=== PATIENT | male | born 1940 | race Caucasian/White ===

== ENCOUNTER 2017-01-27 11:45 | Day surgery (SDC) | payer MEDICARE ==
[~2017-01-27] VITALS: Ht 177.8 cm; Wt 135.0 kg
[~2017-01-27 11:45] MED LIST: AMLO10TA3 PO; ASCO100089 PO; CALC-190 PO; CARV25TA2 PO; CHLS378PW PO; CHOL100043 PO; Dexamethasone 4 mg/mL Inj IVPUSH PRN; EPHEDrine Sulfate 50 mg/mL Inj IVPUSH PRN; EZET10TA PO; FENO160T PO; FINA5TAB9 PO; FURO40SO4 PO; HYDR-3938 PO; HYDROmorphone 1 mg/mL Inj IVPUSH PRN; INSU100V7 SUBQ; ISOS60TA2 PO; LOSA100T3 PO; LOVASA PO; Labetalol 5 mg/mL 4 mL Inj IV PRN; Lactated Ringer's 500 ML IV PRN; MAGN400T4 PO; MULT-666 PO; MetoCLOpramide 5 mg/mL 2 mL Inj IVPUSH PRN; NIAC500C3 PO; OMEG1CAP2 PO; OXYB5TAB10 PO; Ondansetron 2 mg/mL 2 mL Inj IVPUSH PRN; POLY17PO6 PO; POTA20TA16 PO; Phenylephrine 10,000 mCg/mL Inj IVPUSH PRN; TERA10CA5 PO; fentaNYL-PF 50 mCg/mL 2 mL Inj IVPUSH PRN; hydrALAZINE 20 mg/mL Inj IVPUSH PRN; saw palmetto PO
[2017-01-27] MEDS ORDERED: Propofol 10,000 mCg/mL 20 mL Inj ONE (11:46)
[2017-01-27] MEDS ORDERED: Ketamine 10 mg/mL 20 mL Inj ONE (11:46)
[2017-01-27] MEDS ORDERED: FRSM80T PO (12:30)
[2017-01-27 12:36] VITALS: BP 150/68; PULSE 53; RESP 16; O2SAT 96
--- NOTE | 2017-01-27 13:13 | PCM.HPANE ---
Patient Data Date of Service: January 27, 2017 Surgeon Admitting Provider: Attending Provider:Barry Wagner MD Primary Care Physician:Smith Davalos MD Other Provider:Arelis Sharma Anesthesia Reason for Visit Colon Cancer Ht/WT & BMI Height (Feet): 5 Height (Inches): 10 Weight (Kilograms): 135 Body Mass Index 42.00 Allergies Coded Allergies: Sulfa (Sulfonamide Antibiotics) (Verified Allergy, Severe, nose bleeds, ) TAPE (Verified Allergy, Severe, Blisters, 01/15/16) Paper OK rosiglitazone maleate (Verified Allergy, Severe, Myalgias, 01/15/16) Heblgwk-Zwp-Kzv Reductase Inhibitor (Verified Allergy, Mild, stiffness, ) amitriptyline (Verified Allergy, Mild, lethary, 01/15/16) atorvastatin (Verified Allergy, Mild, distress, 01/15/16) diltiazem (Verified Allergy, Mild, leg swelling, 01/15/16) lisinopril (Verified Allergy, Mild, cough, 01/15/16) naproxen (Verified Allergy, Mild, stiffness in back, 01/15/16) niacin (Verified Allergy, Mild, low back pain, 01/15/16) spironolactone (Verified Allergy, Mild, stiff throat muscles, 01/15/16) Uncoded Allergies: AllKare Adhesive (Allergy, Severe, Rash, 02/07/10) Paper Tape OK Statins (Allergy, Severe, myalgia, 02/07/10) "felt like my body was shutting down" w/ Zocor & Lipitor Past Anesthesia History Anesthesia History: Denies:: Abnormal Airway, Anesthesia Reactions, Difficult Intubation, Fam Anesthesia Reaction, Fam Malignant Hypertherm, Malignant Hyperthermia Diabetes History Hx Diabetes?: Yes Current Bedside Blood Glucose: 78 MRSA MRSA: No Medications Blood Thinner: Aspirin Home Meds Incl Beta Jonathan: Yes Date Beta Jonathan Taken: January 27, 2017 Time Beta Jonathan Taken: 0700 Reported Medications Furosemide 80 Mg Tab80 Mg PO DAILY 30 Days Ref 0 01/27/17 Cholecalciferol (Vitamin D3) (Vitamin D)1,000 Unit Tablet4,000 Unit PO DAILY #1 BOTTLE Ref 0 01/26/17 Ascorbic Acid (Vitamin C)1,000 Mg Tab.chew1,000 Mg PO DAILY Ref 0 01/26/17 Hydralazine 10 Mg Mwqfxs73 Mg PO TID Ref 0 01/26/17 Ezetimibe (Zetia)10 Mg Phgfmf50 Mg PO DAILY 30 Days Ref 0 01/15/16 Potassium Chloride 20 Meq Tab.er.prt20 Meq PO BID 30 Days Ref 0 TAKE WITH FOOD 01/15/16 Oxybutynin Chloride 5 Mg Tablet5 Mg PO HS Ref 0 01/15/16 Niacin 500 Mg Capsule.er500 Mg PO 01/15/16 Multivitamin (Once Daily)1 Each Tablet1 Each PO 01/15/16 Polyethylene Glycol 3350 (Miralax)17 Gm Powd.pack17 Gm PO 01/15/16 Magnesium Oxide 400 Mg Dbhhdy866 Mg PO 01/15/16 Logan-3 Acid Ethyl Esters (Lovaza)1 Gm Capsule1 Gm PO DAILY #30 CAPSULE Ref 0 01/15/16 Insulin Glargine (Lantus U100 Insulin Vial)100 Unit/Ml Jefo969 Unit SUBQ HS #1 VIAL Ref 0 01/15/16 Finasteride 5 Mg Tablet5 Mg PO DAILY 30 Days Ref 0 01/15/16 Losartan Potassium (Cozaar)100 Mg Sanklb200 Mg PO 01/15/16 Carvedilol 25 Mg Cisbad21 Mg PO BID Ref 0 01/15/16 Calcium Carb&Cit/Mag12/Vit D3 (Calcium 500 mg Tablet)1 Each Tablet1 Each PO 01/15/16 Amlodipine 10 Mg Lyielx78 Mg PO DAILY Ref 0 01/15/16 Terazosin 10 Mg Iamtnub76 Mg PO HS Ref 0 10/01/15 Isosorbide MN ER 60 Mg Tab.er.24h60 Mg PO DAILY 01/04/14 Cholestyramine (Questran Powder)378 Gm Powd40 Gm PO DAILY #1 CAN Ref 0 01/04/14 [Lovasa] No Conflict Check1 Gm PO DAILY 12/06/13 [saw palmetto] No Conflict Dfhdg454 Mg PO DAILY 09/30/10 Discontinued Reported Medications Fenofibrate (Tricor)145 Mg Jql882 Mg PO DAILY 30 Days Ref 0 01/26/17 Fenofibrate (Tricor)145 Mg Zwf930 Mg PO DAILY 30 Days Ref 0 01/15/16 Furosemide 40 Mg/4 Ml Yehfmjgr15 Mg PO DAILY 30 Days Ref 0 01/15/16 Simethicone (Gas-X)62.5 Mg Strip62.5 Mg PO prn 01/04/14 History History of ENT Problems?: No HEENT History: Positive for:: Cataracts (early stages) Denies:: Abnormal Airway Difficult Intubation Dysphagia Hearing Problem Denture Type: None Teeth Condition: Broken Teeth Hx of Heart Problems?: Yes Cardiovascular History: Positive for:: Atrial Fibrillation Congestive Heart Failure Edema Hypertension Irregular Heartbeat (atrial fibrillation) Denies:: AICD Chest Pain Pacemaker Valvular Heart Disease Hx of Respiratory Problem?: No Respiratory History: Positive for:: Dyspnea (WITH EXERTION) Pneumonia (when he was a child) Denies:: Asthma COPD Cough Hemoptysis Tuberculosis Hx Neurologic Problems?: Yes Neurological History: Positive for:: Dizziness Denies:: CVA Hx of GI Problems?: Yes Hx of Problems?: Yes Genitourinary History: Positive for:: Urinary Tract Infection (2009) Male Hx: Denies:: Scrotal Mass Testicular Surgery Hx Musculoskeletal Problems?: No Musculoskeletal History: Denies:: Joint Replacement Hx of Psycho/Social Problems?: No Psycho Social History: Denies:: Anxiety Hx Depression Hx Surgeries?: Yes (sigmoidectomy, T&A, ) Hx Any Other Health Problems?: No Other History: Positive for:: Cancer (BOWEL RESECT. WITH COLOSTOMY) Hospitalization (x3 in 2009 r/t colon ca) History Blood Transfusions: Positive for:: Blood Transfusions Denies:: Blood Transfuse Reaction Hx Diabetes: YesBedside Blood Glucose: 78 Hx Alcohol Use: NoHx Substance Use: No Smoking Status: Never Smoker Stop/Bang Treated for Sleep Apnea?: Yes Do You Have a CPAP Machine?: Yes DARREN Risk Assessment: High Risk, =/>3 Yes DARREN Category 1: Yes Risk Assessment Category Category 1A: Patient has history of documented sleep apnea, and HAS NOT received any narcotic, sedative or anesthesia administration during this stay. Category 1B: Patient has history of documented sleep apnea, and HAS received any narcotic , sedative or anesthesia administration during this stay Category 2: Patient has SUSPECTED Obstructive Sleep Apnea, and HAS received any narcotic , sedative or anesthesia administration during this stay. Category 3: Patient has SUSPECTED Obstructive Sleep Apnea and HAS NOT received narcotic, sedative or anesthesia administration during this stay. Category 4: Outpatient in Procedural Areas with known sleep apnea or who screen positive for High Risk via the STOP/BANG questionnaire. Exam Exam Vital Signs Vital Signs Date Time Temp Pulse Resp B/P Pulse Ox O2 Delivery O2 Flow Rate FiO2 01/27/17 12:36 37.1 53 16 150/68 96 Room Air General Appearance: Alert, Oriented X3, Cooperative, No Acute Distress HEENT/AIRWAY: MP 2 Lungs: Clear to Auscultation, Normal Air Movement Heart: Exam Unremarkable, Regular Rate/Rhythm, No Murmurs/Rubs/Gallops Meds/Labs/Diagnostics Bedside Blood Glucose: 78 Plan Impression Patient chart reviewed, patient interviewed and anesthestic plan with risks, benefits, and alternatives discussed, and informed consent obtained. ASA Physical Status: ASA2 Mod Systemic Disease Anesthetic Plan: GA Bene/Risks/Altern/Consents: Yes HP Complete Prior to Induction: Yes Antwan Wilburn MD January 27, 2017 13:13
[2017-01-27] MEDS: Lactated Ringer's 1,000 ML IV SCH ×2 (13:19→13:39)
[2017-01-27 13:45] VITALS: BP 154/61; PULSE 56; RESP 16; O2SAT 92
[2017-01-27 13:55] VITALS: BP 168/68; PULSE 54; RESP 16; O2SAT 94
[2017-01-27 13:59] VITALS: BP 142/68; PULSE 56; RESP 16; O2SAT 95
--- NOTE | 2017-01-27 14:03 | PCM.ANEP1 ---
Post Anesthesia Phase 1 PACU Phase 1 Assessment Date of Service: January 27, 2017 Vital Signs Vital Signs Date Time Temp Pulse Resp B/P Pulse Ox O2 Delivery O2 Flow Rate FiO2 01/27/17 13:59 56 16 142/68 95 Room Air 01/27/17 13:55 54 16 168/68 94 Room Air 01/27/17 13:45 56 16 154/61 92 Room Air 01/27/17 12:36 37.1 53 16 150/68 96 Room Air Anesthetic Administered: GA Level of Alertness: Awake, talking Pain: No Nausea or Vomiting: No Oxygen Delivery: Room Air Lungs: Clear to Auscultation, Normal Air Movement Complications: No Antwan Wilburn MD January 27, 2017 14:03
--- NOTE | 2017-01-27 14:09 | ENDO ---
[address] [address] ENDOSCOPY PROCEDURE PATIENT: ELLIE SMITH : 1940 MR#: [id number] ADMIT: 01/27/2017 JOB ID: [id number] DATE OF PROCEDURE: 01/27/2017 PROCEDURE: Colonoscopy with biopsy through colostomy. EQUIPMENT: PCF-H180AL SEDATION: Monitored anesthesia care was provided by the Anesthesiology personnel. PREPARATION QUALITY: Good. INDICATIONS: The patient is a 76-year-old man with a history of both a right colon cancer as well as a rectal cancer for which he underwent a right colectomy and APR and colostomy in 2009. His most recent surveillance endoscopy was a year ago. At that time, the preparation quality was poor and therefore recommendation made for followup colonoscopy in a year which was performed today. PROCEDURE INFORMATION: The patient was taken to the Endoscopy Suite and sedation achieved by the anesthesiologist. The colostomy bag was removed and the endoscope inserted. This was passed under direct visualization through to his proximal anastomosis. The anastomosis was photographed. Preparation quality was good. The scope was then slowly withdrawn, examining the mucosa for any defects or polyps. In the descending colon at around 30 cm from the colostomy, two polyps were noted. There was a small polyp which was removed with cold forceps. There was a larger flat polyp on mucosal fold that could not be entirely removed. Cold forcep biopsies of this were taken. It was somewhat difficult because of rapid loss of air through his colostomy. The scope was then completely withdrawn and the case concluded. ENDOSCOPIC DIAGNOSIS: History of colon and rectal cancer with colon polyps. RECOMMENDATIONS: Await histopathology. [facility]OSPITALJose Antonio
--- NOTE | 2017-01-29 17:48 | PATH ---
SURGICAL PATHOLOGY Attending Physician:Barry Wagner MD CASE STATUS: Signed Out PATIENT NAME: ELLIE SMITH PID: [id number] : 1940 DATE COLLECTED:01/27/2017 00:00 SPECIMEN: Colon, Biopsy CLINICAL HISTORY: 1. DESCENDING COLON POLYPS X2 FINAL DIAGNOSIS: Descending Colon, Polyps, Biopsies: Portions of tubular adenoma x4; negative for high-grade dysplasia. Superficial portion of colorectal mucosa x1 with no significant histomorphologic abnormality. ICD10: K63.5 GROSS DESCRIPTION: The specimen is received in one formalin filled container labeled with the patient's name, sublabeled "descending colon polyps" and consists of 5 portions of tissue which aggregate to 0.4 x 0.4 x 0.3 CM. The specimen is entirely submitted in one cassette. 01/28/2017 [facility] ICD-9 CODES: CPT CODES: 1: 70855 Electronically Signed Out Ailyn Hernandez MD [facility] Pathology [facility] [address], [place] [address] Technical component performed at [facility], [address] [place] [address] [address], [place], [address]
== END 2017-01-27 23:59 | disposition home or self-care (01) ==
LOC: END 11:45
PROVIDERS: ATTEND General Practice
DX: Z12.11 Encounter for screening for malignant neoplasm of colon (principal); Z85.038 Personal history of other malignant neoplasm of large intestine; D12.4 Benign neoplasm of descending colon; I10 Essential (primary) hypertension; I50.32 Chronic diastolic (congestive) heart failure; I48.91 Unspecified atrial fibrillation; E11.9 Type 2 diabetes mellitus without complications; E78.5 Hyperlipidemia, unspecified; G47.33 Obstructive sleep apnea (adult) (pediatric); N40.0 Benign prostatic hyperplasia without lower urinary tract symptoms; E66.01 Morbid (severe) obesity due to excess calories; E02 Subclinical iodine-deficiency hypothyroidism; Z85.46 Personal history of malignant neoplasm of prostate; Z90.49 Acquired absence of other specified parts of digestive tract; Z79.4 Long term (current) use of insulin; Z68.41 Body mass index [BMI] 40.0-44.9, adult; Z93.3 Colostomy status
CPT/HCPCS: 44389; J7120

== ENCOUNTER 2017-05-12 19:34 | Emergency (ER) | payer MEDICARE ==
[~2017-05-12 19:34] MED LIST changes: -Dexamethasone 4 mg/mL Inj IVPUSH PRN; -EPHEDrine Sulfate 50 mg/mL Inj IVPUSH PRN; -FENO160T PO; +FRSM80T PO; -FURO40SO4 PO; -HYDR-3938 PO; -HYDROmorphone 1 mg/mL Inj IVPUSH PRN; -LOVASA PO; -Labetalol 5 mg/mL 4 mL Inj IV PRN; -Lactated Ringer's 500 ML IV PRN; -MetoCLOpramide 5 mg/mL 2 mL Inj IVPUSH PRN; -Ondansetron 2 mg/mL 2 mL Inj IVPUSH PRN; -Phenylephrine 10,000 mCg/mL Inj IVPUSH PRN; -fentaNYL-PF 50 mCg/mL 2 mL Inj IVPUSH PRN; -hydrALAZINE 20 mg/mL Inj IVPUSH PRN
--- NOTE | 2017-05-12 19:59 | ED.REPORT ---
HPI-Trauma Minor / Fall Date of Service May 12, 2017 ED Provider: Willian Hope DO Pt is a 76 y/o male w/ a hx of a-fib, CHF, HTN, IDDM, presenting to the ED via EMS due to fall which occurred prior to arrival. The patient was heading down the steps of his RV and tripped, spun around, and fell from the steps hitting the back of his head onto the bumper of a van. He had no headache or change in LOC prior to the fall. He is now c/o mild DODSON, neck pain, slowly worsening right arm numbness and weakness. He denies any other sites of injury. He is not on anticoagulants. Nursing Notes Stated Complaint: FALL DOWN STAIRS LOC Chief Complaint: Multiple Trauma/Fall Nursing Notes Reviewed: Yes Allergies: Coded Allergies: Sulfa (Sulfonamide Antibiotics) (Verified Allergy, Severe, nose bleeds, ) TAPE (Verified Allergy, Severe, Blisters, 01/15/16) Paper OK rosiglitazone maleate (Verified Allergy, Severe, Myalgias, 01/15/16) Htncncf-Itn-Tdq Reductase Inhibitor (Verified Allergy, Mild, stiffness, ) amitriptyline (Verified Allergy, Mild, lethary, 01/15/16) atorvastatin (Verified Allergy, Mild, distress, 01/15/16) diltiazem (Verified Allergy, Mild, leg swelling, 01/15/16) lisinopril (Verified Allergy, Mild, cough, 01/15/16) naproxen (Verified Allergy, Mild, stiffness in back, 01/15/16) niacin (Verified Allergy, Mild, low back pain, 01/15/16) spironolactone (Verified Allergy, Mild, stiff throat muscles, 01/15/16) aspirin (Unverified Allergy, Unknown, POTENTIAL BLEEDING FROM FORMER BRAIN HEMORRHAGE, 05/12/17) caffeine (Unverified Allergy, Unknown, HEADACHE, 05/12/17) Uncoded Allergies: AllKare Adhesive (Allergy, Severe, Rash, 02/07/10) Paper Tape OK Statins (Allergy, Severe, myalgia, 02/07/10) "felt like my body was shutting down" w/ Zocor & Lipitor Scheduled ([saw palmetto]) 320 MG PO DAILY Amlodipine (Amlodipine) 10 Mg Tablet 10 MG PO BID Ascorbic Acid (Vitamin C) 1,000 Mg Tab.chew 1,000 MG PO HS Calcium Carb&Cit/Mag12/Vit D3 (Calcium 500 mg Tablet) 1 Each Tablet 1 EACH PO HS Carvedilol (Carvedilol) 25 Mg Tablet 25 MG PO BID Cholecalciferol (Vitamin D3) (Vitamin D) 1,000 Unit Tablet 2,000 UNIT PO HS Cholestyramine (Questran Powder) 378 Gm Powd 40 GM PO BID Clobetasol Propionate (Clobetasol Propionate) 50 Ml Solution 1 APPLIC TP BID Ezetimibe (Zetia) 10 Mg Tablet 10 MG PO HS Fenofibrate Nanocrystallized (Fenofibrate) 145 Mg Tablet 145 MG PO DAILY Finasteride (Finasteride) 5 Mg Tablet 5 MG PO HS Furosemide (Furosemide) 80 Mg Tab 80 MG PO DAILY Hydralazine (Hydralazine) 10 Mg Tablet 10 MG PO TIDWM Insulin Glargine (Lantus U100 Insulin Vial) 100 Unit/Ml Vial 150 UNIT SUBQ HS Isosorbide MN ER (Isosorbide MN ER) 60 Mg Tab.er.24h 60 MG PO DAILY Losartan Potassium (Cozaar) 100 Mg Tablet 100 MG PO HS Magnesium Oxide (Magnesium Oxide) 400 Mg Tablet 800 MG PO BID Multivitamin (Once Daily) 1 Each Tablet 1 EACH PO DAILY Niacin (Niacin) 500 Mg Capsule.er 1,000 MG PO DAILY Niacin (Inositol Niacinate) (Niacin 500 mg Capsule) 500 Mg Capsule 500 MG PO HS Valentine-3 Acid Ethyl Esters (Lovaza) 1 Gm Capsule 1 GM PO HS Oxybutynin Chloride (Oxybutynin Chloride) 5 Mg Tablet 5 MG PO HS Polyethylene Glycol 3350 (Miralax) 17 Gm Powd.pack 17 GM PO BID Potassium Chloride (Potassium Chloride) 20 Meq Tab.er.prt 20 MEQ PO BID TAKE WITH FOOD Terazosin (Terazosin) 10 Mg Capsule 10 MG PO HS Ubidecarenone (Coenzyme Q10) 100 Mg Tablet 100 MG PO DAILY General Time Seen by MD: 19:47 Chief Complaint Fall, Head injury Hx Obtained From: Patient, EMS Arrived By: Ambulance Onset Occurred: Just prior to arrival Symptom Duration: Since onset Location: Head Neck Quality: Painful Severity: Current: Mild Severity: Maximum: Moderate Similar Sx Previous: No Past Medical History Past Medical History Atrial fibrillation Congestive heart failure Hypertension Hx pneumonia Sleep apnea Hx GI bleed prior to colon resection Hx UTI Insulin dependent diabetes Hx colon cA s/p resection with colostomy Past Surgical History Sigmoidectomy Tonsillectomy and adenoidectomy Smoking History Never Smoker Ambulatory Status Independent Review of Systems Musculoskeletal: Denies: Back pain Neurologic: Reports: Change LOC, Focal weakness, Headache, Numbness, Denies: Slurred speech, Unable to speak, Vision change Complete sys rev & neg: except as marked. Cardiovascular: Denies: Chest pain GI: Denies: Abdominal pain Male: Denies Flank pain Physical Exam Initial Vital Signs See RN paper sheet, VS stable Initial VS: Reviewed ENT: Mucous membranes moist, Conjunctiva normal, No scleral icterus Respiratory: Breath sounds normal, Clear to auscultation, No respiratory distress Cardiovascular: Regular rate & rhythm, Heart sounds normal, Intact distal pulses Abdomen / GI: Soft, Non-tender, No guarding, No rebound, No distention Skin: Warm, Dry, No cyanosis Psychiatric: Mood/affect normal, Behavior normal, Normal thought content General/Constitutional: Awake, Alert, No acute distress, Cooperative, Not toxic appearing Appearance / Presentation: Positive: Obese Trauma - Neck Specific: Positive: Immobilized - C Collar Head / Eyes: Normocephalic, PERRL Occipital hematoma Abrasion to top of head Upper Extremity / MS: Atraumatic, Full range of motion, No swelling, Non-tender , No erythema, No deformity, Neurologic intact, Vascular intact Lower Extremity / Pelvis / MS: Atraumatic, Full range of motion, No swelling, Non-tender, No deformity, Neurologic intact, Vascular intact Neurologic: Oriented X3, Speech NL, CN II - XII intact, Cerebellar NL, Memory NL RUE: Surgical Supply Assistant strength reduced Weakness with abduction of the right arm Interpretation & Diagnostics Lab Results Interpretation Result Diagram: 05/12/17195605/12/171956 Test 05/12/17 19:57 05/12/17 20:27 White Blood Count 7.0th/mm3 (3.8-10.1) Red Blood Count 4.53mil/mm3 (4.40-5.80) Hemoglobin 15.1g/dL (13.8-17.2) Hematocrit 41.8% (41.0-50.0) Mean Corpuscular Volume 92.3fL (81-100) Mean Corpuscular Hemoglobin 33.3pg (27.0-35.0) Mean Corpuscular Hemoglobin Concent 36.1% (32.0-37.0) Red Cell Distribution Width 12.5% (12.3-15.4) Platelet Count 139bil/L (150-400) Neutrophils (%) (Auto) 59.8% (40-74) Lymphocytes (%) (Auto) 25.7% (14-46) Monocytes (%) (Auto) 9.9% (4-12) Eosinophils (%) (Auto) 3.9% (0-5) Basophils (%) (Auto) 0.4% (0-3) Prothrombin Time 10.7sec (8.1-12.5) Prothromb Time International Ratio 1.00ratio Activated Partial Thromboplast Time 26.0sec (22.8-33.0) Sodium Level 139mEq/L (134-144) Potassium Level 3.5mEq/L (3.5-5.2) Chloride Level 101mEq/L (97-108) Carbon Dioxide Level 24mmol/L (18-29) Blood Urea Nitrogen 11mg/dL (8-27) Creatinine 0.65mg/dL (0.76-1.27) Estimat Glomerular Filtration Rate 128mL/min (>59) Glucose Level 124mg/dL (60-99) Calcium Level 9.4mg/dL (8.5-10.1) Total Bilirubin 0.9mg/dL (0.0-1.2) Aspartate Amino Transf (AST/SGOT) 45U/L (0-50) Alanine Aminotransferase (ALT/SGPT) 22U/L (0-44) Alkaline Phosphatase 75U/L (25-160) Total Protein 7.5g/dL (6.4-8.4) Albumin 4.1g/dL (3.4-5.0) Hold [place] Top Tube Received (Received) Alcohols < 10mg/dL (0-10) Urine Color Yellow (YELLOW) Urine Appearance Clear (CLEAR,HAZY) Urine pH 6.5 (5.0-8.0) Urine Specific [place] 1.010 (1.003-1.035) Urine Protein 100mg/dL (NEG,TRACE) Urine Glucose (UA) Negativemg/dL (NEGATIVE) Urine Ketones Negativemg/dL (NEGATIVE) Urine Occult Blood Negative (NEGATIVE) Urine Nitrite Negative (NEGATIVE) Urine Bilirubin Negative (NEGATIVE) Urine Urobilinogen Normalmg/dL (NORMAL) Urine Leukocyte Esterase Negative (NEGATIVE) Urine RBC 0-2/hpf (0-2) Urine WBC 0-5/hpf (0-5) Urine Epithelial Cells Occasional/hpf (NONE-MOD) Urine Crystals None seen (NONE SEEN) Urine Bacteria None/hpf (NONE-FEW) Urine Hyaline Casts None/lpf (NONE) Urine Granular Casts None seen (NONE SEEN) Urine Waxy Casts None seen (NONE SEEN) Urine Red Blood Cell Casts None seen (NONE SEEN) Urine White Blood Cell Casts None seen (NONE SEEN) Urine Mucus None seen (None Seen) Urine Trichomonas None seen (NONE SEEN) Urine Yeast None (NONE SEEN) Urinalysis Comment None Pulse Oximetry Interpretation Pulse Oximetry: Pulse Ox normal, On room air ECG Interpretation Time: 20:37 Interpreted by: ED physician Normal ECG Interpretation: Normal ECG w/ rate of... (62), Normal rate, Normal sinus rhythm, No acute ischemic changes, Normal QRS, Normal axis, Normal intervals, Adequate tracing Rhythm Strip Interpretation : Time: 20:40 Rhythm Strip Interpretation: Interpreted by me, Rate (62), Normal sinus rhythm CBC Interpretation CBC normal BMP / CMP Interpretation BMP/CMP normal Serum Coags Interpretation Coags all normal Urinalysis Interpretation Urinalys reviewed and NL CT Head Interpretation FINDINGS: Image quality: Excellent. CSF spaces: Basal cisterns are patent. No extra-axial fluid collections. The ventricles are symmetric in size and shape. Brain: There is a 2.0 x 3.3 x 3.1 cm acute parenchymal hematoma involving the left parietal lobe. There is a 0.8 cm diameter acute parenchymal hematoma involving the medial aspect of the right parietal lobe. There is cerebral volume loss for age, with resultant ventricular and sulcal prominence. There are periventricular and deep white matter chronic small vessel ischemic changes. There is intracranial internal carotid artery atherosclerosis. Skull and face: Calvarium and visualized facial bones appear intact, without suspicious lesions. Sinuses: Mucosal thickening and complete opacification of the right maxillary sinus noted. The mastoids are clear. IMPRESSION: 1. Acute 2.0 x 3.3 x 3.1 cm left parietal and 0.8 cm in diameter right parietal parenchymal hematomas. 2. Findings telephoned to Dr. Willian Hope on 05/12/2017 at 2039 hrs. Dictated by: Danielle Matta MD, PhD on 05/12/2017 at 20:42 Study: Head CT no contrast Interpretation / Wet Read by: Interpret - RadiologistCee radiologist CT C-Spine Interpretation IMPRESSION: No fracture. No acute osseous lesion. If there are persistent symptoms or continued clinical suspicion for pathology, then MRI should be considered for further evaluation. Dictated by: Danielle Matta MD, PhD on 05/12/2017 at 20:37 Approved by: Danielle Matta MD, PhD on 05/12/2017 at 20:42 Study type: CT no contrast Interpretation / Wet Read by: Interpret - Radiologist Re-Eval/Medical Decision Med Decision/Clinical Course 21:30 - He is experiencing right arm weakness. He has a GCS of 15 and is conversing with his . He is mildly hypertensive with no signs of herniation syndrome. 76-year-old male tripped as he was walking out of his trailer. He spun around and fell down backwards steps off the trailer. He struck his head on the bumper of the auto that was parked next to the trailer. He had a loss of consciousness. He presents with a headache, scalp laceration and right arm numbness. He presented with a Blair Coma Scale of 15. He had decreased sensation over the right arm but there are no injuries below the clavicle clinically. Cardiopulmonary examination was normal. Blood exam was normal. Limbs were normal aside from decreased sensation of his right arm. CT scan of his brain showed 2 intraparenchymal hemorrhages. One is fairly large in size 2 cm x 3 cm x 2.8 cm in the left parietal. A smaller right parietal hemorrhage is noted as well. There is no midline shift. CT scan of his neck was negative for traumatic injury. I consulted with the [facility] and Mr. Lopez was accepted for transfer. He did develop increasing right arm weakness to the point where he could barely move his right arm. This is most likely related to the intraparenchymal hemorrhage. His cervical spine does not seem to be fractured however we will keep him immobilized pending neurosurgical evaluation. He is currently awake alert oriented 4. His GCS is 15. 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 Decreased sensation. Beyond that he has not worsened neurologically whatsoever. Intubation does not seem indicated at this time. He has been here for over 2 hours and he is showing stability. His pupils are equal and reactive. We did initiate IV Keppra 1000 mg. Transfer is eminent. Source of Hx: Old records Re-Evaluation/Progress #1: Time of Eval: 20:49 Re-Evaluation/Progress Note: Pt rechecked. Currently GCS of 15 with some right arm numbness. Informed pt of need for emergent transfer. He agrees with plan for transfer. Discussed code status. He is DNR and DNI. Re-Evaluation/Progress #2: Time of Eval: 21:17 Re-Evaluation/Progress Note: Pt rechecked. GCS remains 15. Discussed case with who is now in room. Having increased right arm numbness and weakness and now some right leg numbness. Re-Evaluation/Progress #3: Time of Eval: 21:50 Re-Evaluation/Progress Note: Pt rechecked. His right arm is now paralyzed. GCS is 15. Consultation : Call Returned at: 21:19 Shirt Presser: Agrees with eval, Agrees with plan Note: Discussed case with [facility] neurosurgery Dr. Rudy Mckenzie. Recommends give Keppra. Do not adjust BP. Transfer via airlift. Counseled Regarding: Diagnosis, Lab results, Need for transfer Discharge & Departure Impression: Primary Impression: Intracranial hemorrhage Additional Impressions: Fall down steps Encounter type: initial encounter Qualified Code: W10.8XXA - Fall (on) (from ) other stairs and steps, initial encounter Head injury Encounter type: initial encounter Qualified Code: S09.90XA - Unspecified injury of head, initial encounter Paralysis of right upper extremity Disposition: Transfer, Acute Care Facility Transfer Requested at: 21:24 Receiving Hospital: [facility] Transfer Accepted: Yes Transfer Accepted at: 21:24 Transfer Reason: Higher level of care Patient Status: Stable Patient Informed: Yes Discharge Condition All VS Reviewed: Yes Condition: Stable Referrals: Smith Davalos MD (PCP) Crit Care Except Billable Proc Time Spent: 75-104 minutes Services Performed: Patient management by me, Time spent at bedside, Reviewing test results, Reviewing imaging, Discussing patient care, Documentation in record Critical Care Notes: 80 minutes Scribe Attestation Portions of this note were transcribed by Honorio Clifton. I, Dr. Hope personally performed the history, physical exam and medical decision-making; I reviewed and confirmed the accuracy of the information in the transcribed note. copies to: Smith Davalos MD, Todd P DO May 12, 2017 19:59 HONORIO CLIFTON May 12, 2017 20:02
[2017-05-12 20:00] LABS: BASOPHILS % (AUTO) 0.4 % (0-3); EOSINOPHILS % (AUTO) 3.9 % (0-5); MONOCYTES % (AUTO) 9.9 % (4-12); Mean Corpuscular Hemoglobin 33.3 pg (27.0-35.0); Mean Corpuscular Volume 92.3 fL (81-100); NEUTROPHILS % (AUTO) 59.8 % (40-74); Platelet Count 139 bil/L (150-400)
[2017-05-12] MEDS ORDERED: CLOB50SO TP (20:06)
[2017-05-12] MEDS ORDERED: FLUT9.9S NS (20:06)
[2017-05-12] MEDS ORDERED: HYDR-3938 PO (20:06)
[2017-05-12] MEDS ORDERED: FENO145T19 PO (20:06)
[2017-05-12] MEDS ORDERED: UBID100T7 PO (20:06)
--- NOTE | 2017-05-12 20:44 | DRSVH ---
PROCEDURE: CT CERVICAL SPINE WITHOUT CONTRAST ([id number]) INDICATIONS: fall with LOC TECHNIQUE: Noncontrast 3 mm thick sections acquired from the skull base to the T4 level. Sagittal and coronal r eformats were then constructed. For radiation dose reduction, the following was used: automated exp osure control, adjustment of mA and/or kV according to patient size. COMPARISON: None. FINDINGS: Image quality: Excellent. Bones: No fractures or dislocations. Visualized superior ribs are intact. Multilevel degenerative d isc disease and facet arthropathy are noted. Soft tissues: Prevertebral soft tissues are normal in thickness. No paravertebral hematomas. No ap ical pneumothoraces. IMPRESSION: No fracture. No acute osseous lesion. If there are persistent symptoms or continued clin ical suspicion for pathology, then MRI should be considered for further evaluation. Dictated by: Danielle Matta MD, PhD on 05/12/2017 at 20:37 Approved by: Danielle Matta MD, PhD on 05/12/2017 at 20:42
[2017-05-12 20:45] LABS: APPEARANCE,URINE CLEAR (CLEAR,HAZY); COLOR,URINE YELLOW (YELLOW); OCCULT BLOOD,URINE NEGATIVE (NEGATIVE); PH,URINE 6.5 (5.0-8.0); UROBILINOGEN,URINE NORMAL (NORMAL)
--- NOTE | 2017-05-12 20:49 | DRSVH ---
PROCEDURE: CT BRAIN WITHOUT CONTRAST ([id number]) INDICATIONS: fall with LOC TECHNIQUE: Noncontrast 4.5 mm thick angled axial sections acquired from the foramen magnum to the vertex, with c oronal reformats. COMPARISON: [facility], CT, CT CERVICAL SPINE WO CON, 05/12/2017, 20:08. FINDINGS: Image quality: Excellent. CSF spaces: Basal cisterns are patent. No extra-axial fluid collections. The ventricles are symmet johnathan in size and shape. Brain: There is a 2.0 x 3.3 x 3.1 cm acute parenchymal hematoma involving the left parietal lobe. T here is a 0.8 cm diameter acute parenchymal hematoma involving the medial aspect of the right parieta l lobe. There is cerebral volume loss for age, with resultant ventricular and sulcal prominence. Th ere are periventricular and deep white matter chronic small vessel ischemic changes. There is intrac ranial internal carotid artery atherosclerosis. Skull and face: Calvarium and visualized facial bones appear intact, without suspicious lesions. Sinuses: Mucosal thickening and complete opacification of the right maxillary sinus noted. The mast oids are clear. IMPRESSION: 1. Acute 2.0 x 3.3 x 3.1 cm left parietal and 0.8 cm in diameter right parietal parenchymal hematoma s. 2. Findings telephoned to Dr. Willian Hope on 05/12/2017 at 2039 hrs. Dictated by: Danielle Matta MD, PhD on 05/12/2017 at 20:42 Approved by: Danielle Matta MD, PhD on 05/12/2017 at 20:48
[2017-05-12] MEDS ORDERED: NIAC1CAP PO (21:19)
[2017-05-12] MEDS ORDERED: levETIRAcetam Inj 1,000 MG in IV Premix 1 EACH IV ONE (21:25)
[2017-05-12 22:23] VITALS: BP 182/73; PULSE 64; RESP 14; O2SAT 97
== END 2017-05-12 22:10 | disposition short-term general hospital (02) ==
LOC: SED 19:34
DX: S06.2X9A Diffuse traumatic brain injury with loss of consciousness of unspecified duration, initial encounter (principal); W10.8XXA Fall (on) (from) other stairs and steps, initial encounter; G83.21 Monoplegia of upper limb affecting right dominant side; Y93.01 Activity, walking, marching and hiking; Y92.89 Other specified places as the place of occurrence of the external cause; Y99.8 Other external cause status; I11.0 Hypertensive heart disease with heart failure; I50.9 Heart failure, unspecified; E11.9 Type 2 diabetes mellitus without complications; I48.91 Unspecified atrial fibrillation; Z85.038 Personal history of other malignant neoplasm of large intestine; Z79.4 Long term (current) use of insulin; Z88.2 Allergy status to sulfonamides; Z88.5 Allergy status to narcotic agent; Z88.8 Allergy status to other drugs, medicaments and biological substances
CPT/HCPCS: 36415; 70450; 72125; 80053; 81001; 85025; 85610; 85730; 93005; 99291; 99292; G0390; G0480